=== PATIENT | male | born 1955 | race Caucasian/White ===

== ENCOUNTER 2019-09-28 10:56 | Outpatient (CLI) | payer OTHER, SELFPAY ==
[2019-09-28 11:58] LABS: Basophils # 0.1 10^3/uL (0.0-0.1); Basophils % 1.4 %; Eosinophils # 0.4 10^3/uL (0.0-0.8); Eosinophils % 5.2 %; Hematocrit 45.8 % (42.0-52.0); Hemoglobin 16.1 g/dL (11.7-16.6); Lymphocytes % 26.9 %; Mean Corpuscular HGB Conc 35.2 g/dL (30.0-36.0); Mean Corpuscular Hemoglobin 32.1 pg (28.0-34.0); Mean Corpuscular Volume 91.4 fL (80-94); Mean Platelet Volume 10.6 fL (7.4-10.4); Monocytes # 0.7 10^3/uL (0.2-0.9); Monocytes % 10.1 %; Neutrophils # 4.1 10^3/uL (1.8-7.7); Nucleated Red Blood Cells % 0 %; Platelet Count 267 10^3/cmm (130-400); Red Blood Count 5.01 10^6/uL (4.1-5.3); Red Cell Distribution Width 11.6 % (12.1-15.1); White Blood Count 7.4 10^3/uL (4.0-10.0)
[2019-09-28 12:24] LABS: Alanine Aminotransferase 36 U/L (0-41); Albumin Level 3.9 g/dL (3.5-5.2); Alkaline Phosphatase 91 IU/L (40-130); Anion Gap 13.9 (5-19); Aspartate Amino Transferase 31 U/L (0-40); Blood Urea Nitrogen 13 mg/dL (8-23); Calcium 9.5 mg/dL (8.5-10.5); Carbon Dioxide 29 mmol/L (22-29); Chloride 96 mmol/L (98-107); Globulin 3.9 g/dL (1.3-4.6); Glomerular Filtration Rate 97.3 mL/min (90-130); Glucose 144 mg/dL (65-115); Potassium 4.9 mmol/L (3.5-5.1); Sodium 134 mmol/L (136-145); Total Bilirubin 0.7 mg/dL (0.15-1.2); Total Protein 7.8 g/dL (6.6-8.7)
[2019-09-28 12:39] LABS: Estmated Average Glucose 140; Hemoglobin A1C 6.5 % (4.0-6.0)
== END 2019-09-28 10:57 | disposition home or self-care (01) ==
LOC: LAB 10:58
PROVIDERS: Family Provider Family Medicine; PCP Family Medicine; Visit Provider Family Medicine
DX: I10 Essential (primary) hypertension (principal); R73.02 Impaired glucose tolerance (oral); K58.9 Irritable bowel syndrome, unspecified
CPT/HCPCS: 80053; 83036; 85025

== ENCOUNTER → 2021-02-09 10:05 | Outpatient (BNVA) | payer BC, SELFPAY | PROVIDERS: Family Provider Family Medicine; PCP Family Medicine; Referring Provider Registered Nurse; Visit Provider Podiatrist Foot & Ankle Surgery | DX: M79.672 Pain in left foot (principal) | CPT/HCPCS: 73610; 73630 ==

== ENCOUNTER 2021-02-09 11:25 | Outpatient (CLI) | payer BC, SELFPAY | END 2021-02-09 11:26 | disposition home or self-care (01) | LOC: SPT 11:26 | PROVIDERS: Family Provider Family Medicine; PCP Family Medicine; Visit Provider Podiatrist Foot & Ankle Surgery | DX: Z46.89 Encounter for fitting and adjustment of other specified devices (principal); M76.822 Posterior tibial tendinitis, left leg | CPT/HCPCS: 97760; L1902 ==

== ENCOUNTER 2022-02-20 15:11 | Outpatient (CLI) | payer BC, SELFPAY | END 2022-02-20 15:12 | disposition home or self-care (01) | LOC: SPT 15:11 | PROVIDERS: Family Provider Family Medicine; Visit Provider Podiatrist Foot & Ankle Surgery | DX: Z46.89 Encounter for fitting and adjustment of other specified devices (principal); M76.829 Posterior tibial tendinitis, unspecified leg; M79.673 Pain in unspecified foot | CPT/HCPCS: 97760; L3030 ==

== ENCOUNTER 2025-01-13 02:13 | Emergency (ER) | payer MEDICARE, SELFPAY ==
[2025-01-13] VITALS (11 sets, daily range): BP systolic 111–167; BP diastolic 72–103; PULSE 60–82; RESP 14–18; TEMP 36.6; O2SAT 94–98; BMI 30.4
--- NOTE | 2025-01-13 02:25 | ECG_ITS ---
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
--- NOTE | 2025-01-13 03:13 | CTR_ITS ---
PROCEDURE INFORMATION: Exam: CT Abdomen And Pelvis With Contrast Exam date and time: 01/13/2025 3:53 AM Age: 69 years old Clinical indication: Abdominal pain; Other: Ruq; Additional info: Ruq pain, ? gallbadder TECHNIQUE: Imaging protocol: Computed tomography of the abdomen and pelvis with contrast. Radiation optimization: All CT scans at this facility use at least one of these dose optimization techniques: automated exposure control; mA and/or kV adjustment per patient size (includes targeted exams where dose is matched to clinical indication); or iterative reconstruction. Contrast material: OMNI 350; Contrast volume: 100 ml; Contrast route: INTRAVENOUS (IV); COMPARISON: No relevant prior studies available. RADIATION DOSE METRICS: Total DLP (mGy-cm): 763.83 FINDINGS: Liver: The liver is unremarkable. Gallbladder and biliary ducts: Gallbladder demonstrates multiple subcentimeter internal calcified stones. No distinct gallbladder wall thickening. No biliary ductal dilation. Pancreas: Moderate atrophy of the pancreas. No pancreatic ductal dilation. Spleen: The spleen is unremarkable. Adrenal glands: The adrenal glands are unremarkable. Kidneys and ureters: Renal cysts measuring up to 1.4 cm. No hydronephrosis or hydroureter. No intrarenal stones. Stomach and bowel: No evidence of bowel obstruction. Moderate colonic diverticulosis. No distinct focal acute diverticulitis. Mild sigmoid diverticulitis could potentially be obscured. Appendix: The appendix is normal. Intraperitoneal space: No significant free fluid in the abdomen or pelvis. No extraluminal free air. Vasculature: [id number] scattered calcific atheromatous disease of the abdominal aorta and its major branches. No abdominal aortic aneurysm. Lymph nodes: No distinct pathologically enlarged lymphadenopathy. Urinary bladder: Urinary bladder is within normal limits. Reproductive: Visualized reproductive structures are within normal limits. Bones/joints: No acute osseous findings. Soft tissues: Visualized superficial soft tissues are within normal limits. CT/CT abdomen pelvis w con* [id number] IMPRESSION: 1. Gallbladder demonstrates multiple subcentimeter internal calcified stones. No distinct gallbladder wall thickening. No biliary ductal dilation. 2. Moderate colonic diverticulosis. No distinct focal acute diverticulitis. Mild sigmoid diverticulitis could potentially be obscured. COMMENTS: Consistent with the [employer]'s Incidental Findings Committee white paper (J Am Luda Radiol 2018): Any incidental renal lesion less than 1 cm or classified as too small to characterize, or any incidental cystic renal lesion characterized as simple-appearing, is likely benign. No follow-up imaging is recommended for these lesions per consensus recommendations based on imaging criteria.
[2025-01-13 03:28] LABS: Basophils # 0.1 10^3/uL (0.0-0.1); Basophils % 1.2 %; Eosinophils # 0.4 10^3/uL (0.0-0.8); Eosinophils % 4.5 %; Hematocrit 42.6 % (37-53); Lymphocytes % 24.9 %; Mean Corpuscular HGB Conc 33.6 g/dL (30-55); Mean Corpuscular Hemoglobin 29.9 pg (27-33); Mean Corpuscular Volume 89.1 fl (82-101); Mean Platelet Volume 10.2 fL (7.4-10.4); Monocytes # 0.8 10^3/uL (0.2-0.9); Monocytes % 9.8 %; Neutrophils % 58.8 %; Nucleated Red Blood Cells % 0 %; Platelet Count 243 10^3/cmm (157-399); Red Blood Count 4.78 10^6/uL (3.85-5.65); Red Cell Distribution Width 12.2 % (12.1-15.1); White Blood Count 7.82 10^3/uL (3.29-11.43)
[2025-01-13] MEDS: ondansetron 2 mg/ML SDV 2 mL 4 MG IVP (03:31)
[2025-01-13] MEDS: morphine 4 mg/mL SDV 1 mL IVP (03:32)
[2025-01-13] MEDS: sodium chloride 0.9% 1,000 ML 999 ML IV (03:33)
[2025-01-13 03:46] LABS: Alanine Aminotransferase 30 U/L (0-41); Albumin Level 4.2 g/dL (3.5-5.2); Alkaline Phosphatase 86 U/L (40-130); Anion Gap 16.5 (5-19); Aspartate Amino Transferase 20 U/L (0-40); Blood Urea Nitrogen 17 mg/dL (8-23); Calcium 9.4 mg/dL (8.5-10.5); Carbon Dioxide 28 mmol/L (22-29); Chloride 95 mmol/L (98-107); Creatinine Clr Calc Pharmacy 95.3165; Globulin 3.6 g/dL (1.3-4.6); Glomerular Filtration Rate 95.8 mL/min (90-130); Glucose 179 mg/dL (65-115); Lipase 42 U/L (13-60); Osmolality Calculated 286 mOsm/kg (285-295); Potassium 4.5 mmol/L (3.5-5.1); Sodium 135 mmol/L (136-145); Total Bilirubin 0.4 mg/dL (0.15-1.2); Total Protein 7.8 g/dL (6.6-8.7)
[2025-01-13] MEDS: iohexol 350 mg/mL 500 mL Btl (per mL) IV (03:55)
--- NOTE | 2025-01-13 05:57 | US_ITS ---
WS: [id number] RIGHT UPPER QUADRANT ULTRASOUND HISTORY: RUQ pain COMPARISON: CT 01/13/2025 Liver: 15.7 cm in length. Very heterogeneous appearance of the liver. Poor penetration of the liver. Deep liver is not visualized due to attenuation. Recent CT with performed in the liver demonstrated no masses. No intrahepatic duct dilatation. Portal Vein: Normal hepatopetal flow with monophasic waveform. Gallbladder: Gallbladder is normally distended with several stones. Gallbladder is top normal size and mildly heterogeneous. There is sludge within the gallbladder. No pericholecystic fluid. CBD: 0.5 cm Pancreas: Completely obscured by bowel gas. Right kidney: 10.7 cm in length. Normal size kidney with no hydronephrosis. Cortical cyst mid kidney 1.6 cm. Aorta and IVC: Atherosclerosis, poorly visualized. No ascites. US/US gall bladder [id number] IMPRESSION: 1. Cholelithiasis and a small amount of gallbladder sludge. No pericholecystic fluid. Early changes of acute cholecystitis cannot be excluded although there is no gallbladder wall thickening. 2. Normal common bile duct. 3. Moderate hepatic steatosis.
--- NOTE | 2025-01-13 06:34 | W.ED.ABDPA2 ---
HPI - Abdominal Pain General: Chief Complaint: Abdominal Pain Stated Complaint: Chest Pain Time Seen by Provider: 01/13/25 03:13 History of Present Illness: Patient is a generally well-appearing 69-year-old male seen for epigastric and right upper quadrant abdominal pain of several hours duration. He is not certain if food makes it worse as he has not eaten anything since the pain started. On arrival, pain was 8 of 10, cramping, worse with palpation and better with rest. He denies antecedent fever, nausea, vomiting, diarrhea, constipation, and has no history of pancreatitis, and no history of abdominal surgeries. Related Data Home Medications ?Medication ?Instructions ?Recorded ?Confirmed cyclobenzaprine 10 mg tablet 10 mg PO QID 02/09/21 10/19/24 dicyclomine 10 mg capsule 10 mg PO QID 02/09/21 10/19/24 diltiazem HCl 240 mg capsule,24 240 mg PO DAILY 02/09/21 10/19/24 hr,extended release famotidine-Ca carb-mag hydrox 10 1 tab PO DAILY PRN 02/09/21 10/19/24 mg-800 mg-165 mg chewable tablet (Acid Refractory Mixer Complete (famotidine)) lisinopril 20 1 tab PO DAILY 02/09/21 10/19/24 mg-hydrochlorothiazide 12.5 mg tablet metoprolol succinate 100 mg 100 mg PO DAILY 02/09/21 10/19/24 capsule sprinkle, ext. release 24 hr tamsulosin 0.4 mg capsule 0.4 mg PO DAILY 02/09/21 10/19/24 montelukast 10 mg tablet ea PO 01/17/22 10/19/24 Previous Rx's ?Medication ?Instructions ?Recorded Spectrum AFO with lateral T strap #1 ea 02/09/21 Supinator ASO #1 ea 02/09/21 Spectrum AFO with lateral T strap #1 ea 03/02/21 Custom Orthotics #1 ea 01/17/22 mupirocin 2 % topical ointment 1 applic topical TID #15 grams 01/02/24 silver sulfadiazine 1 % topical 1 applic topical BID 2 weeks #50 09/24/24 cream grams Allergies Allergy/AdvReac Type Severity Reaction Status Date / Time No Known Allergies Allergy Verified 10/19/24 10:55 PFSH ED PFSH: Social History Smoking and tobacco/nicotine status: never used tobacco/nicotine Physical Exam Const: COMMON NORMALS: no acute distress, patient oriented x3 and alert HENMT: COMMON NORMALS: normocephalic and atraumatic HEAD & SCALP: normocephalic and atraumatic Eye: COMMON NORMALS: Equal, round and reactive pupils present, EOMs intact bilaterally and no scleral icterus PUPIL: Yes Equal, round and reactive pupils present Resp: COMMON NORMALS: normal respiratory effort and No retractions Cardio: COMMON NORMALS: regular rate, regular rhythm and No murmurs present (Cardio) RATE: regular rate RHYTHM: regular rhythm GI: COMMON NORMALS: Normal to inspection, nondistended, normoactive bowel sounds present and Soft to palpation PALPATION: Yes Soft to palpation OTHER: Moderate tenderness with palpation of the epigastrium and right upper quadrant Neuro: COMMON NORMALS: patient oriented x3 SENSORIUM/ORIENTATION: Yes alert Skin: COMMON NORMALS: no rashes or lesions noted GENERAL SKIN EXAM: no rashes or lesions noted Course Vital Signs: Vital signs: Vital Signs Temperature 97.9 F 01/13/25 02:22 Pulse Rate 77 01/13/25 06:00 Respiratory Rate 16 01/13/25 06:00 Blood Pressure 148/89 01/13/25 06:00 Pulse Oximetry 95 01/13/25 06:00 Oxygen Delivery Me thod Room Air 01/13/25 02:22 MDM - Abdominal Pain Medical Decision Making In summary, patient is a generally well-appearing 69-year-old male seen for epigastric and right upper quadrant pain. Lipase is not elevated. Liver function tests are normal. CT scan shows gallstones but no other evidence of acute cholecystitis. Ultrasound was performed as well showing similar findings. We discussed that oftentimes gallbladder disease can be indolent and waxing and waning and that he may have worsening symptoms over the next few days or maybe he will feel better. He knows that he is always welcome back in the emergency department, but will be discharged in stable and improved condition. Referral to general surgery was placed. He shows good understanding and agrees to the plan Lab Data 01/13/25 03:21 01/13/25 03:21 Labs/Radiology: Radiology Impressions Abdomen/Pelvis CT 01/13/25 03:13 IMPRESSION: 1. Gallbladder demonstrates multiple subcentimeter internal calcified stones. No distinct gallbladder wall thickening. No biliary ductal dilation. 2. Moderate colonic diverticulosis. No distinct focal acute diverticulitis. Mild sigmoid diverticulitis could potentially be obscured. COMMENTS: Consistent with the [employer]'s Incidental Findings Committee white paper (J Am Luda Radiol 2018): Any incidental renal lesion less than 1 cm or classified as too small to characterize, or any incidental cystic renal lesion characterized as simple-appearing, is likely benign. No follow-up imaging is recommended for these lesions per consensus recommendations based on imaging criteria. Laboratory Results WBC 7.82 10^3/uL (3.29-11.43) 01/13/25 03:21 RBC 4.78 10^6/uL (3.85-5.65) 01/13/25 03:21 Hgb 14.30 g/dL (11.27-16.99) 01/13/25 03:21 Hct 42.6 % (37-53) 01/13/25 03:21 MCV 89.1 fl (82-101) 01/13/25 03:21 MCH 29.9 pg (27-33) 01/13/25 03:21 MCHC 33.6 g/dL (30-55) 01/13/25 03:21 RDW 12.2 % (12.1-15.1) 01/13/25 03:21 Plt Count 243 10^3/cmm (157-399) 01/13/25 03:21 MPV 10.2 fL (7.4-10.4) 01/13/25 03:21 Neut % (Auto) 58.8 % 01/13/25 03:21 Lymph % (Auto) 24.9 % 01/13/25 03:21 [place] % (Auto) 9.8 % 01/13/25 03:21 Eos % (Auto) 4.5 % 01/13/25 03:21 Baso % (Auto) 1.2 % 01/13/25 03:21 Neut # (Auto) 4.60 10^3/uL (1.8-7.7) 01/13/25 03:21 Lymph # (Auto) 2.0 10^3/uL (0.8-4.8) 01/13/25 03:21 [place] # (Auto) 0.8 10^3/uL (0.2-0.9) 01/13/25 03:21 Eos # (Auto) 0.4 10^3/uL (0.0-0.8) 01/13/25 03:21 Baso # (Auto) 0.1 10^3/uL (0.0-0.1) 01/13/25 03:21 Nucleated RBC % (auto) 0 % 01/13/25 03:21 Nucleated RBCs # 0.0 /100WBC 01/13/25 03:21 Sodium 135 mmol/L (136-145) L 01/13/25 03:21 Potassium 4.5 mmol/L (3.5-5.1) 01/13/25 03:21 Chloride 95 mmol/L (98-107) L 01/13/25 03:21 Carbon Dioxide 28 mmol/L (22-29) 01/13/25 03:21 Anion Gap 16.5 (5-19) 01/13/25 03:21 BUN 17 mg/dL (8-23) 01/13/25 03:21 Creatinine 0.8 mg/dL (0.7-1.2) 01/13/25 03:21 GFR Calculation 95.8 mL/min (90-130) 01/13/25 03:21 Glucose 179 mg/dL (65-115) H 01/13/25 03:21 Calculated Osmolality 286 mOsm/kg (285-295) 01/13/25 03:21 Calcium 9.4 mg/dL (8.5-10.5) 01/13/25 03:21 Total Bilirubin 0.4 mg/dL (0.15-1.2) 01/13/25 03:21 AST 20 U/L (0-40) 01/13/25 03:21 ALT 30 U/L (0-41) 01/13/25 03:21 Alkaline Phosphatase 86 U/L (40-130) 01/13/25 03:21 Total Protein 7.8 g/dL (6.6-8.7) 01/13/25 03:21 Albumin 4.2 g/dL (3.5-5.2) 01/13/25 03:21 Globulin 3.6 g/dL (1.3-4.6) 01/13/25 03:21 Lipase 42 U/L (13-60) 01/13/25 03:21 All radiology interpretation(s) finalized by discharge Discharge Plan Discharge Patient Disposition: Home Clinical Impression: Abdominal pain, acute, right upper quadrant Condition: Stable Prescriptions: No Action diltiazem HCl 240 mg capsule,extended release 24 hr 240 mg PO DAILY lisinopril-hydrochlorothiazide 20-12.5 mg tablet 1 tab PO DAILY metoprolol succinate 100 mg capsule,sprinkle,ER 24hr 100 mg PO DAILY Acid Refractory Mixer Complete (famot) 10-800-165 mg tablet,chewable 1 tab PO DAILY PRN tamsulosin 0.4 mg capsule 0.4 mg PO DAILY cyclobenzaprine 10 mg tablet 10 mg PO QID dicyclomine 10 mg capsule 10 mg PO QID (DME) Spectrum AFO with lateral T strap See Rx Instructions .ROUTE .MEDSUPPLY Qty: 1 0RF Rx Instructions: As directed (DME) Supinator ASO See Rx Instructions .Route .MEDSUPPLY Qty: 1 0RF Rx Instructions: As directed montelukast 10 mg tablet PO (DME) Custom Orthotics See Rx Instructions .Route .MEDSUPPLY Qty: 1 0RF Rx Instructions: As directed mupirocin 2 % ointment 1 applic topical TID Qty: 15 0RF Rx Instructions: apply to wound TID and as needed with dressing changes, cover with band-aid silver sulfadiazine 1 % cream 1 applic topical BID 14 Days Qty: 50 2RF Rx Instructions: apply a 1.5 mm thickness (DME) Spectrum AFO with lateral T strap See Rx Instructions .Route .MEDSUPPLY Qty: 1 0RF Rx Instructions: As directed by Mike Discharge Orders: Discharge ED (Routine); Ordered 01/13/25 Ordered By: Jose A Del Rio Referrals: Noemi Keenan FNP [Primary Care Provider, Nurse Practitioner] Discharge Diet: Low Fat Discharge Activity: Increase activity as tolerated Patient Instructions: Gallstones (ED), Low Fat Diet (ED) Activity Restrictions/Additional Instructions: As we discussed, gallbladder disease can be very tricky to diagnose especially early on. There are gallstones in your gallbladder however they do not cause changes which require immediate surgical intervention at this time. The gallbladder wall is not thickened, common bile duct is not dilated, and liver function enzymes are not elevated. There is a chance that with time your gallbladder will get more and more diseased and require surgical removal but at this time it is not emergent. 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
--- NOTE | 2025-01-13 07:52 | DCPLANNER ---
messaged gen surgery for er f/u
== END 2025-01-13 06:42 | disposition home or self-care (01) ==
PROVIDERS: Emergency Provider Student in an Organized Health Care Education/Training Program; PCP Registered Nurse
DX: R10.11 Right upper quadrant pain (principal)
CPT/HCPCS: 74177; 76705; 80053; 83690; 85025; 93005; 96361; 96374; 96375; 99285; J2270; J2405; J7030

== ENCOUNTER → 2025-01-21 12:22 | Outpatient (BNVA) | payer MEDICARE, SELFPAY | PROVIDERS: PCP Registered Nurse; Referring Provider Student in an Organized Health Care Education/Training Program; Visit Provider Student in an Organized Health Care Education/Training Program | DX: K82.9 Disease of gallbladder, unspecified (principal) | CPT/HCPCS: 99204 ==